=== PATIENT | male | born 1970 ===

== ENCOUNTER 2019-03-17 06:44 | Day surgery (SDC) | payer OTHER ==
[2019-03-17] VITALS (11 sets, daily range): BP systolic 112–128; BP diastolic 74–88
[~2019-03-17] VITALS: Ht 175.3 cm; Wt 81.6 kg
[~2019-03-17 06:44] MED LIST: NKM; ceFAZolin 1gm IVPB IVPB ONE; celeBREX 200mg Cap **SURGERY PATIENTS ONLY ORAL ONE; oxyCONTIN 20mg tab ORAL ONE
[2019-03-17] MEDS ORDERED: Ketorolac 30mg Inj ONE (07:01)
[2019-03-17] MEDS ORDERED: Lidocaine 1% 10mg/ml/Epi 0.005mg/ml 30ml vial INJ ONE (07:02)
[2019-03-17] MEDS ORDERED: Bupivacaine 0.25% Inj 30ml INJ ONE (07:02)
[2019-03-17] MEDS ORDERED: Kenalog-40 1ml Vial ONE (07:02)
[2019-03-17] MEDS ORDERED: Duramorph PF 5mg/10ml amp ONE (07:02)
[2019-03-17] MEDS ORDERED: Midazolam 2mg/2ml Inj ONE (08:47)
[2019-03-17] MEDS ORDERED: fentaNYL 100 mcg/2 mL IV ONE (08:47)
[2019-03-17] MEDS ORDERED: NS 275ml ONE (09:00)
[2019-03-17] MEDS ORDERED: Propofol 200mg/20ml IV ONE (09:00)
[2019-03-17] MEDS ORDERED: Lidocaine 1% MPF 10mg/ml 5ml ONE (09:00)
[2019-03-17] MEDS ORDERED: LR 1000ml ONE (09:00)
[2019-03-17] MEDS ORDERED: NS Irrig 4000ml IRRIG ONE (09:00)
--- NOTE | 2019-03-17 09:18 | Operative Note - PDOC ---
Operative Note Operative Note Pre-op Diagnosis: right kneeinternal derangment possible menisecus tear Procedure: see op report Post-op Diagnosis: same as pre-op plus Operative Findings: consistent w/pre-op dx studies Anesthesia: MAC Specimen: none Complications: none Condition: stable Estimated Blood Loss: none Implant(s) used?: No Burt Galeana MD Mar 17, 2019 09:18
--- NOTE | 2019-03-17 09:18 | Pre-Procedure Note/Attestation ---
Pre-Procedure Note/Attestation Complete Prior to Procedure Planned Procedure: right Procedure Narrative: knee diagnostic arthroplasty, possible menisectomy Indications for Procedure Pre-Operative Diagnosis: right kneeinternal derangment possible menisecus tear Attestation I attest that I discussed the nature of the procedure; its benefits; risks and complications; and alternatives (and the risks and benefits of such alternatives ), prior to the procedure, with the patient (or the patient's legal senior sales representative). I attest that, if there was a reasonable possibility of needing a blood transfusion, the patient (or the patient's legal senior sales representative) was given the [facility] standardized written summary, pursuant to the [place] Blood Safety Act ([place] Health and Safety Code # 1645, as amended). I attest that I re-evaluated the patient just prior to the surgery and that there has been no change in the patient's H&P, except as documented below: Burt Galeana MD Mar 17, 2019 09:18
[2019-03-17] MEDS ORDERED: Duramorph PF 5mg/10ml amp IV ONE (09:30)
[2019-03-17] MEDS ORDERED: fentaNYL 100 mcg/2 mL IV PRN (10:15)
--- NOTE | 2019-03-17 10:18 | Anethesia Preoperative Eval ---
Anesthesia Pre-op PMH/ROS General Date of Evaluation: Mar 17, 2019 Time of Evaluation: 09:15 Anesthesiologist: carline ASA Score: ASA 1 Mallampati Score Class I : Soft palate, uvula, fauces, pillars visible Class II: Soft palate, uvula, fauces visible Class III: Soft palate, base of uvula visible Class IV: Only hard plate visible Mallampati Classification: Class II Surgeon: jose Diagnosis: knee pain Surgical Procedure: right knee scope Anesthesia History: none Family History: no anesthesia problems Allergies: Coded Allergies: No Known Allergies (Unverified , 03/16/19) Medications: see eMAR Patient NPO?: Yes NPO Date: Mar 17, 2019 NPO Time: 00:01 Past Medical History Cardiovascular: Denies: HTN, CAD, PR, valve dz, arrhythmia, other Pulmonary: Denies: asthma, COPD, YOLY, other Gastrointestinal/Genitourinary: Denies: GERD, CRI, ESRD, other Neurologic/Psychiatric: Denies: dementia, CVA, depression/anxiety, TIA, other Endocrine: Denies: DM, hypothyroidism, steroids, other HEENT: Denies: cataract (L), cataract (R), glaucoma, [place] (L), [place] (R), other Hematology/Immune: Denies: anemia, DVT, bleeding disorder, other Musculoskeletal/Integumentary: Denies: OA, RA, DJD, DDD, edema, other PSxH Narrative: denies Anesthesia Pre-op Phys. Exam Physician Exam Last Vital Signs Date Time Temp Pulse Resp B/P (MAP) Pulse Ox O2 Delivery O2 Flow Rate FiO2 03/17/19 07:16 Room Air 03/17/19 07:15 97.0 64 18 127/85 100 Constitutional: NAD Neurologic: CN 2-12 intact Cardiovascular: RRR Respiratory: CTA Gastrointestinal: S/NT/ND Airway Exam Mallampati Classification 2 Mallampati Score: Class II MO: full ROM: full Dentures: no upper, no lower Anesthesia Pre-op A/P Studies Pre-op Studies: EKG - sr Risk Assessment & Plan Assessment: right eye redness > left ; pt acknowledges and reports eye drops prescribed by eye doctor; informed pt regarding possibility of increase redness. he verbalized understanding Plan: General Status Change Before Surgery: No Pre-Antibiotics Drug: ancef Given Within 1 Hr of Incision: Yes Time Given: 09:25 Randa Weinberg HIDES INSPECTOR Mar 17, 2019 10:18
--- NOTE | 2019-03-17 10:18 | Immediate Post-Op Evaluation ---
Immediate Post-Op Evalulation Immediate Post-Op Evalulation Procedure: right knee scope Date of Evaluation: Mar 17, 2019 Time of Evaluation: 10:18 IV Fluids: 500 Blood Pressure Systolic: 125 Blood Pressure Diastolic: 87 Pulse Rate: 65 Respiratory Rate: 14 O2 Sat by Pulse Oximetry: 99 Temperature (Fahrenheit): 98.4 Nausea: No Vomiting: No Complications none Patient Status: awake, reacts, patent Drug: ancef Given Within 1 Hr of Incision: Yes Time Given: 09:25 Randa Weinberg CRNA Mar 17, 2019 10:18
--- NOTE | 2019-03-17 14:48 | 48 Hour Post Anesthesia Eval ---
Post Anesthesia Evaluation Procedure: right knee scope Date of Evaluation: Mar 17, 2019 Time of Evaluation: 14:47 Blood Pressure Systolic: 114 0: 78 Pulse Rate: 68 Respiratory Rate: 14 Temperature (Fahrenheit): 98.0 O2 Sat by Pulse Oximetry: 99 Airway: patent Nausea: No Vomiting: No Hydration Status: adequate Cardiopulmonary Status: stable Mental Status/LOC: patient returned to baseline Follow-up Care/Observations: na Post-Anesthesia Complications: none Follow-up care needed: N/A Randa Weinberg [employer] Mar 17, 2019 14:47
--- NOTE | 2019-03-17 15:45 | Operative Note - Dictated ---
DATE OF OPERATION: 03/17/2019 PREOPERATIVE DIAGNOSIS: Right knee lateral meniscus tear. POSTOPERATIVE DIAGNOSES: 1. Right knee lateral meniscus tear. 2. Grade 3 chondral damage, medial femoral condyle. 3. Grade 3 chondral damage, trochlear groove. 4. Hypertrophic synovial tissue medial and lateral patellofemoral compartment. PROCEDURE: 1. Right knee arthroscopic partial and lateral meniscectomy. 2. Synovectomy medial and lateral patellofemoral compartment. 3. Gentle chondroplasty, medial, lateral, and patellofemoral compartment. SURGEON: Burt Galeana M.D. ANESTHESIA: General. INDICATION FOR PROCEDURE: The patient is a pleasant gentleman, who has had right knee pain. He had MRI, which showed the evidence of a meniscal tear. He failed conservative treatment, elected to undergo right knee arthroscopy, partial lateral meniscectomy. Risks, limitations, expectations, and complications of the procedure were discussed in detail. All questions were addressed. DESCRIPTION OF PROCEDURE: After informed consent was obtained, the patient was brought to the operating room. The patient was placed under general anesthesia. The right leg was prepped and draped in sterile manner. Time-out was performed. An inferolateral stab incision was then made. Trocar introduced into the knee joint. Systematic tour of the knee was performed. There was hypertrophic fat pad and synovial tissue making visualization of patellofemoral compartment difficult. Medial compartment was entered. Medial working portal established. Medial meniscus probe and noted to be intact. There was some grade 3 chondral damage of medial femoral condyle. Intercondylar notch was entered. The ligamentum mucosum and fat pad was removed to better visualize the intercondylar notch. The ACL was probed and noted to be intact. Lateral compartment was entered. Tear of the anterior horn, lateral meniscus, and mid body, partial meniscectomy using combination of madi and biters was performed. Once that was done, the camera was placed in the patellofemoral compartment. Excision of the fat pad and synovectomy was completed. This allowed better visualization of patellofemoral compartment which showed grade 3 chondral damage in trochlear groove. Gentle chondroplasty was performed. Instruments were then removed. Portal sites were closed with 3-0 Monocryl sutures. Steri-Strips and a sterile dressing were applied. The patient awoken and taken to recovery room with stable signs. ESTIMATED BLOOD LOSS: None. COMPLICATIONS: None. SPECIMENS: None. IMPLANTS: None. Burt Galeana M.D. DR: Clarence JOB#: [id number] CC:
== END 2019-03-17 11:30 | disposition home or self-care (01) ==
LOC: SUR 06:44
DX: S83.281A Other tear of lateral meniscus, current injury, right knee, initial encounter (principal); M67.261 Synovial hypertrophy, not elsewhere classified, right lower leg; X58.XXXA Exposure to other specified factors, initial encounter; Y92.9 Unspecified place or not applicable
CPT/HCPCS: 29876; 29880; J0690; J1885; J2250; J2405; J2704; J3010; J3301; J3490; J7050; 94003; 94150